=== PATIENT | male | born 1935 | race Caucasian/White ===

== ENCOUNTER → 2017-01-19 | Outpatient (CLI) | payer MEDICARE ==
--- NOTE | 2017-01-19 11:09 | US ---
EXAMINATION TYPE: US kidneys/renal and bladder DATE OF EXAM: 01/19/2017 10:55 AM COMPARISON: NONE CLINICAL HISTORY: N13.30 Hydronephrosis. EXAM MEASUREMENTS: Right Kidney: 9.9 x 5.5 x 4.7 cm Left Kidney: 11.3 x 4.8 x 5.6 cm No hydronephrosis is evident. Right Kidney: cyst measures 0.7 x 0.9 x 0.9 cm Left Kidney: multiple cysts, largest measures 2.3 x 1.6 x 1.9 cm Bladder: wnl Bilateral Jets seen: only left jet seen IMPRESSION: 1. Bilateral renal cysts. 2. No hydronephrosis
== END | disposition home or self-care (01) ==
LOC: RADUSWWP 10:35
PROVIDERS: ATTEND Internal Medicine
DX: N28.1 Cyst of kidney, acquired (principal)
CPT/HCPCS: 76770

== ENCOUNTER → 2019-08-08 | Outpatient (CLI) | payer MEDICARE ==
[2019-08-08 19:33] LABS: Chol/HDL Ratio 4.14; LDL Cholesterol,Calculated 85.4 mg/dL (0.0-131.0); VLDL Calculation 24.6 mg/dL (5.00-40.00)
== END | disposition home or self-care (01) ==
LOC: LABWHC1 08:40
PROVIDERS: ATTEND Internal Medicine Interventional Cardiology
DX: E78.2 Mixed hyperlipidemia (principal)
CPT/HCPCS: 36415; 80061; 84450; 84460

== ENCOUNTER → 2020-02-19 | Outpatient (CLI) | payer MEDICARE ==
[2020-02-19 17:29] LABS: African American GFR (CKD) 48.8 (60.0-200.0); Albumin 4.2 g/dL (3.80-4.90); Anion Gap 9.9 mmol/L (4.00-12.00); BUN/Creat Ratio 21.33 Ratio (12.00-20.00); Calcium 9.1 mg/dL (8.7-10.3); Carbon Dioxide 23.1 mmol/L (21.6-31.8); Chol/HDL Ratio 4.12; Globulin 2.1 g/dL (1.6-3.3); LDL Cholesterol,Calculated 72.8 mg/dL (0.0-131.0); Non-African American GFR(CKD) 42.1 (60.0-200.0); Potassium 5.1 mmol/L (3.5-5.5); Total Bilirubin 1.4 mg/dL (0.2-1.2); Total Protein 6.3 g/dL (6.2-8.2); VLDL Calculation 30.2 mg/dL (5.00-40.00)
== END | disposition home or self-care (01) ==
LOC: LABWHC1 08:36
PROVIDERS: ATTEND Nurse Practitioner Adult Health
DX: E78.2 Mixed hyperlipidemia (principal); I42.8 Other cardiomyopathies
CPT/HCPCS: 36415; 80053; 80061

== ENCOUNTER → 2020-09-23 | Outpatient (CLI) | payer MEDICARE ==
[2020-09-23 15:46] LABS: African American GFR (CKD) 38.9 (60.0-200.0); Albumin 4.4 g/dL (3.80-4.90); Albumin/Globulin Ratio 1.83 (1.60-3.17); Anion Gap 8.3 mmol/L (4.00-12.00); BUN/Creat Ratio 16.11 Ratio (12.00-20.00); Calcium 9.6 mg/dL (8.7-10.3); Carbon Dioxide 27.7 mmol/L (21.6-31.8); Chol/HDL Ratio 4.14; Globulin 2.4 g/dL (1.6-3.3); LDL Cholesterol,Calculated 81.8 mg/dL (0.0-131.0); Non-African American GFR(CKD) 33.6 (60.0-200.0); Potassium 5.4 mmol/L (3.5-5.5); Total Bilirubin 1.4 mg/dL (0.2-1.2); Total Protein 6.8 g/dL (6.2-8.2); VLDL Calculation 31.2 mg/dL (5.00-40.00)
== END | disposition home or self-care (01) ==
LOC: LABWHC1 08:51
PROVIDERS: ATTEND Internal Medicine Interventional Cardiology
DX: E78.2 Mixed hyperlipidemia (principal)
CPT/HCPCS: 36415; 80053; 80061

== ENCOUNTER → 2020-10-16 | Outpatient (CLI) | payer MEDICARE ==
[2020-10-16 15:20] LABS: African American GFR (CKD) 44.9 (60.0-200.0); Anion Gap 6.4 mmol/L (4.00-12.00); BUN/Creat Ratio 13.13 Ratio (12.00-20.00); Carbon Dioxide 26.6 mmol/L (21.6-31.8); Non-African American GFR(CKD) 38.7 (60.0-200.0); Potassium 5.3 mmol/L (3.5-5.5)
== END | disposition home or self-care (01) ==
LOC: LABWHC1 08:17
PROVIDERS: ATTEND Nurse Practitioner Adult Health
DX: N18.9 Chronic kidney disease, unspecified (principal)
CPT/HCPCS: 36415; 80048

== ENCOUNTER → 2020-12-27 | Outpatient (CLI) | payer MEDICARE ==
--- NOTE | 2020-12-27 17:30 | US ---
EXAMINATION TYPE: US kidneys/renal and bladder DATE OF EXAM: 12/27/2020 COMPARISON: NONE CLINICAL HISTORY: 85-year-old male N18.32 chronic kidney disease. CKD 3 TECHNIQUE: Multiple sonographic images of the kidneys and bladder are obtained. FINDINGS: EXAM MEASUREMENTS: Right Kidney: 9.2 x 4.3 x 4.0 cm Left Kidney: 10.5 x 4.3 x 3.7 cm Right Kidney: Scattered small cortical and parapelvic cysts, the largest in the lower pole measures 1 .7 x 1.1 x 1.3 cm. No hydronephrosis. Left Kidney: Exophytic cyst from the midpole measures 2.4 x 1.3 x 2.5 cm and from the lower pole mehdi ures 2.0 x 1.9 x 2.1 cm. No hydronephrosis. Bladder: Underdistention of the bladder limits its evaluation. Bilateral Jets seen: Yes IMPRESSION: No hydronephrosis. Bilateral renal cysts. Kidney measurements as above.
== END | disposition home or self-care (01) ==
LOC: RADUSWWP 15:23
PROVIDERS: ATTEND Internal Medicine
DX: N28.1 Cyst of kidney, acquired (principal); N18.32 Chronic kidney disease, stage 3b
CPT/HCPCS: 76770

== ENCOUNTER → 2021-03-26 | Outpatient (CLI) | payer MEDICARE ==
[2021-03-26 16:41] LABS: Appearance,Urine Clear (Clear); Bilirubin,Urine Negative (Negative); Blood,Urine Negative (Negative); Color,Urine Light Yellow; Glucose,Urine (UA) Negative (Negative); Ketones,Urine Negative (Negative); Leukocyte Esterase,Urine Negative (Negative); Nitrite,Urine Negative (Negative); PH, Urine 5.5 (5.0-8.0); Protein,Urine Negative (Negative); Specific Gravity,Urine 1.008 (1.001-1.035); Urobilinogen,Urine <2.0 mg/dL (<2.0)
[2021-03-27 01:23] LABS: HCT 36.9 % (39.6-50.0); HGB 12.2 g/dL (13.0-17.0); MCHC 33.1 g/dL (32.0-37.0); MCV 96.9 fL (80.0-97.0); Mean Platelet Volume 9.7 fL (9.5-12.2); Platelet Count 225 X 10*3/uL (140-440); RBC 3.81 X 10*6/uL (4.40-5.60); RDW 13.1 % (11.5-14.5); WBC 5.74 X 10*3/uL (4.50-10.00)
[2021-03-27 17:51] LABS: % Iron Saturation 25.37 (15.00-50.00); African American GFR (CKD) 44.9 (60.0-200.0); Albumin 4.2 g/dL (3.80-4.90); Albumin/Globulin Ratio 1.62 (1.60-3.17); Anion Gap 16.5 mmol/L (4.00-12.00); BUN/Creat Ratio 16.88 Ratio (12.00-20.00); Calcium 9.3 mg/dL (8.7-10.3); Carbon Dioxide 23.5 mmol/L (21.6-31.8); Globulin 2.6 g/dL (1.6-3.3); Magnesium 2.2 mg/dL (1.5-2.4); Non-African American GFR(CKD) 38.7 (60.0-200.0); Phosphorus 3.7 mg/dL (2.4-5.1); Potassium 4.5 mmol/L (3.5-5.5); Total Bilirubin 0.8 mg/dL (0.3-1.2); Total Protein 6.8 g/dL (6.2-8.2); Uric Acid 8.8 mg/dL (3.7-8.7)
[2021-03-27 17:59] LABS: Ferritin 190.7 ng/mL (22.0-322.0)
== END | disposition home or self-care (01) ==
LOC: LABWHC1 15:58
PROVIDERS: ATTEND Internal Medicine
DX: N18.32 Chronic kidney disease, stage 3b (principal); D64.9 Anemia, unspecified; N39.0 Urinary tract infection, site not specified; N25.81 Secondary hyperparathyroidism of renal origin; M10.9 Gout, unspecified
CPT/HCPCS: 36415; 80053; 81003; 82306; 82728; 83540; 83550; 83735; 83970; 84100; 84550; 85027

== ENCOUNTER → 2021-08-25 | Outpatient (CLI) | payer MEDICARE ==
--- NOTE | 2021-08-25 19:22 | US ---
EXAMINATION TYPE: US kidneys/renal and bladder DATE OF EXAM: 08/25/2021 COMPARISON: Ultrasound 12/27/2020 CLINICAL HISTORY: N18.32 STAGE 3 CHR KIDNEY DISEASE. CKD EXAM MEASUREMENTS: Right Kidney: 10.0 x 5.4 x5.1 cm Left Kidney: 12.3 x 5.4 x 5.6 cm Right Kidney: No hydronephrosis, echogenic,multiple anechoic areas seen Left Kidney: No hydronephrosis, echogenic, multiple anechoic areas seen Bladder: wnl Bilateral Jets seen: Yes There is no evidence for hydronephrosis at this point in time. No nephrolithiasis is seen. No lópez s are identified. Cortical medullary differentiation is maintained. Cortical echotexture is increased however. The urinary bladder is anechoic. Bilateral ureteral jets are seen. Right Kidney anechoic areas 1) 2.1 x 2.9x 1.1cm 2) 1.6 x 1.4 x 1.2cm Left Kidney anechoic areas 1) 2.6 x 2.4 x 1.4cm 2) 2.3 x 2.6 x 1.7cm 3) 1.6 x 1.7 x 1.7cm, findings consistent with simple cysts IMPRESSION: Renal measurements as described. Bilateral renal cysts are again noted. Findings consistent with medi hawk renal disease.
== END | disposition home or self-care (01) ==
LOC: RADUSWWP 16:03
PROVIDERS: ATTEND Internal Medicine Nephrology
DX: N18.30 Chronic kidney disease, stage 3 unspecified (principal); N28.1 Cyst of kidney, acquired
CPT/HCPCS: 76770

== ENCOUNTER → 2021-10-07 | Outpatient (CLI) | payer MEDICARE ==
[2021-10-07 15:02] LABS: ALT 18 U/L (10-49); AST 24 U/L (14-35); African American GFR (CKD) 48.6 (60.0-200.0); Albumin/Globulin Ratio 1.56 (1.60-3.17); Alkaline Phosphatase 85 U/L (41-126); BUN/Creat Ratio 12.28 Ratio (12.00-20.00); Blood Urea Nitrogen 18.3 mg/dL (9.0-27.0); Carbon Dioxide 23.8 mmol/L (20.0-27.5); Chloride 100 mmol/L (96-109); Chol/HDL Ratio 3.27 Ratio; Globulin 2.5 g/dL (1.6-3.3); Glucose 96 mg/dL (70-110); LDL Cholesterol,Calculated 70.3 mg/dL (0.0-131.0); Non-African American GFR(CKD) 41.9 (60.0-200.0); Potassium 4.8 mmol/L (3.5-5.5); Sodium 135 mmol/L (135-145); Total Protein 6.5 g/dL (6.2-8.2)
== END | disposition home or self-care (01) ==
LOC: LABWHC1 08:34
PROVIDERS: ATTEND Nurse Practitioner Adult Health
DX: E78.2 Mixed hyperlipidemia (principal); N18.9 Chronic kidney disease, unspecified
CPT/HCPCS: 36415; 80053; 80061

== ENCOUNTER 2021-12-05 00:12 | Emergency (ER) | payer MEDICARE ==
[2021-12-05 00:25] VITALS: RESP 18; TEMP 97.5
--- NOTE | 2021-12-05 00:31 | ED ---
Altered Mental Status HPI - General Chief Complaint: Altered Mental Status Stated Complaint: Confusion, Nausea, Vomiting Time Seen by Provider: 12/05/21 00:18 Source: EMS Mode of arrival: EMS Limitations: altered mental status - History of Present Illness Initial Comments: This is an 86-year-old man brought from home to have evaluation for altered mental status. Per the report he has been more confused than usual and also has been having trouble with word finding. When I interview the patient, he states that he has been having a little bit of shortness of breath and cough. He denies fever or chills. No chest pain. MD Complaint: altered mental status, confusion -: days(s) Severity: mild Associated Symptoms: shortness of breath - Related Data Previous Rx's Medication Instructions Recorded Ondansetron Odt [Zofran ODT] 4 mg PO Q8HR PRN #10 tab 12/05/21 Allergies Allergy/AdvReac Type Severity Reaction Status Date / Time Penicillins Allergy Rash/Hives Verified 12/05/21 02:41 Review of Systems ROS Statement: Those systems with pertinent positive or pertinent negative responses have been documented in the HPI. ROS Other: All systems not noted in ROS Statement are negative. Limitations: ROS unobtainable due to patients medical condition (Underlying dementia versus delirium) Constitutional: Denies: fever Respiratory: Reports: cough, dyspnea. Denies: hemoptysis Cardiovascular: Denies: chest pain, palpitations, edema, syncope Gastrointestinal: Denies: abdominal pain, vomiting, diarrhea Genitourinary: Denies: dysuria Musculoskeletal: Denies: back pain Neurological: Reports: as per HPI, confusion. Denies: headache, weakness Past Medical History Past Medical History: Unable to Obtain History of Any Multi-Drug Resistant Organisms: None Reported Past Surgical History: Unable to Obtain Past Psychological History: No Psychological Hx Reported Smoking Status: Former smoker Past Alcohol Use History: Rare Past Drug Use History: None Reported General Exam General appearance: alert, in no apparent distress Head exam: Present: atraumatic, normocephalic Eye exam: Present: normal appearance Respiratory exam: Present: normal lung sounds bilaterally, rales (Bilateral bases). Absent: respiratory distress, wheezes, rhonchi, stridor Cardiovascular Exam: Present: regular rate, normal rhythm, normal heart sounds. Absent: systolic murmur, diastolic murmur, rubs, gallop GI/Abdominal exam: Present: soft. Absent: distended, tenderness, guarding, rebound, rigid, mass Extremities exam: Present: normal inspection, normal capillary refill. Absent: pedal edema, calf tenderness Back exam: Present: normal inspection Neurological exam: Present: alert, CN II-XII intact. Absent: oriented X3 (Patient is oriented to person and place could not state the date.), motor sensory deficit Skin exam: Present: warm, dry, intact, normal color. Absent: rash Course Vital Signs 12/05/21 12/05/21 12/05/21 00:19 02:40 05:20 Temperature 97.5 F L Pulse Rate 64 65 73 Respiratory 18 18 18 Rate Blood Pressure 165/75 173/88 147/52 O2 Sat by Pulse 95 94 L 95 Oximetry Medical Decision Making - Medical Decision Making This patient is an 86-year-old man here to be evaluated for altered mental status. On arrival he does appear to be mildly dyspneic. Workup does reveal element of congestive heart failure but he has improved clinically over his stay here. He was able to lie flat without any orthopnea. The dyspnea had resolved. He did request to go home. Additional history from the patient's daughter revealed that he was having some mild dementia symptoms going back up to a year. He did appear to be much better to the patient's daughter after he had slept a little and she did want to take him home and they'll follow with his physician. - Lab Data Result diagrams: 12/05/21 00:33 12/05/21 00:33 Lab Results 12/05/21 12/05/21 12/05/21 Range/Units 00:33 00:33 00:33 WBC 6.0 (3.8-10.6) k/uL RBC 3.99 L (4.30-5.90) m/uL Hgb 12.8 L (13.0-17.5) gm/dL Hct 37.6 L (39.0-53.0) % MCV 94.4 (80.0-100.0) fL MCH 32.1 (25.0-35.0) pg MCHC 34.0 (31.0-37.0) g/dL RDW 12.9 (11.5-15.5) % Plt Count 185 (150-450) k/uL MPV 7.4 Neutrophils % 65 % Lymphocytes % 21 % Monocytes % 8 % Eosinophils % 3 % Basophils % 1 % Neutrophils # 3.9 (1.3-7.7) k/uL Lymphocytes # 1.2 (1.0-4.8) k/uL Monocytes # 0.5 (0-1.0) k/uL Eosinophils # 0.2 (0-0.7) k/uL Basophils # 0.1 (0-0.2) k/uL Sodium 129 L (137-145) mmol/L Potassium 4.8 (3.5-5.1) mmol/L Chloride 100 (98-107) mmol/L Carbon Dioxide 21 L (22-30) mmol/L Anion Gap 8 mmol/L BUN 21 H (9-20) mg/dL Creatinine 1.27 H (0.66-1.25) mg/dL Est GFR (CKD-EPI)AfAm 59 (>60 ml/min/1.73 sqM) Est GFR (CKD-EPI)NonAf 51 (>60 ml/min/1.73 sqM) Glucose 104 H (74-99) mg/dL Plasma Lactic Acid Michael 1.2 (0.7-2.0) mmol/L Calcium 8.2 L (8.4-10.2) mg/dL Total Bilirubin 1.3 (0.2-1.3) mg/dL AST 28 (17-59) U/L ALT 13 (4-49) U/L Alkaline Phosphatase 65 (38-126) U/L Troponin I (0.000-0.034) ng/mL NT-Pro-B Natriuret Pep pg/mL Total Protein 6.5 (6.3-8.2) g/dL Albumin 3.6 (3.5-5.0) g/dL Urine Color Urine Appearance (Clear) Urine pH (5.0-8.0) Ur Specific [place] (1.001-1.035) Urine Protein (Negative) Urine Glucose (UA) (Negative) Urine Ketones (Negative) Urine Blood (Negative) Urine Nitrite (Negative) Urine Bilirubin (Negative) Urine Urobilinogen (<2.0) mg/dL Ur Leukocyte Esterase (Negative) Urine RBC (0-5) /hpf Urine WBC (0-5) /hpf Ur Squamous Epith Cells (0-4) /hpf Urine Mucus (None) /hpf Serum Alcohol <10 mg/dL 12/05/21 12/05/21 12/05/21 Range/Units 00:33 00:33 02:03 WBC (3.8-10.6) k/uL RBC (4.30-5.90) m/uL Hgb (13.0-17.5) gm/dL Hct (39.0-53.0) % MCV (80.0-100.0) fL MCH (25.0-35.0) pg MCHC (31.0-37.0) g/dL RDW (11.5-15.5) % Plt Count (150-450) k/uL MPV Neutrophils % % Lymphocytes % % Monocytes % % Eosinophils % % Basophils % % Neutrophils # (1.3-7.7) k/uL Lymphocytes # (1.0-4.8) k/uL Monocytes # (0-1.0) k/uL Eosinophils # (0-0.7) k/uL Basophils # (0-0.2) k/uL Sodium (137-145) mmol/L Potassium (3.5-5.1) mmol/L Chloride (98-107) mmol/L Carbon Dioxide (22-30) mmol/L Anion Gap mmol/L BUN (9-20) mg/dL Creatinine (0.66-1.25) mg/dL Est GFR (CKD-EPI)AfAm (>60 ml/min/1.73 sqM) Est GFR (CKD-EPI)NonAf (>60 ml/min/1.73 sqM) Glucose (74-99) mg/dL Plasma Lactic Acid Michael (0.7-2.0) mmol/L Calcium (8.4-10.2) mg/dL Total Bilirubin (0.2-1.3) mg/dL AST (17-59) U/L ALT (4-49) U/L Alkaline Phosphatase (38-126) U/L Troponin I 0.012 (0.000-0.034) ng/mL NT-Pro-B Natriuret Pep 3440 pg/mL Total Protein (6.3-8.2) g/dL Albumin (3.5-5.0) g/dL Urine Color Yellow Urine Appearance Clear (Clear) Urine pH 5.0 (5.0-8.0) Ur Specific [place] 1.020 (1.001-1.035) Urine Protein Trace H (Negative) Urine Glucose (UA) Negative (Negative) Urine Ketones Negative (Negative) Urine Blood Small H (Negative) Urine Nitrite Negative (Negative) Urine Bilirubin Negative (Negative) Urine Urobilinogen <2.0 (<2.0) mg/dL Ur Leukocyte Esterase Negative (Negative) Urine RBC 1 (0-5) /hpf Urine WBC 3 (0-5) /hpf Ur Squamous Epith Cells <1 (0-4) /hpf Urine Mucus Rare H (None) /hpf Serum Alcohol mg/dL Disposition Clinical Impression: Altered mental status, CHF (congestive heart failure) Disposition: HOME SELF-CARE Condition: Good Instructions (If sedation given, give patient instructions): Heart Failure (DC) Prescriptions: Ondansetron Odt [Zofran ODT] 4 mg PO Q8HR PRN #10 tab PRN Reason: Nausea Is patient prescribed a controlled substance at d/c from ED?: No Referrals: None,Stated [Primary Care Provider] - 1-2 days Jose Alberto Fuentes DO [Doctor of Osteopathic Medicine] - 1-2 days
[2021-12-05 00:45] LABS: Basophils # (A) 0.1 k/uL (0-0.2); Basophils % (A) 1 %; Eosinophils # (A) 0.2 k/uL (0-0.7); Eosinophils % (A) 3 %; HCT 37.6 % (39.0-53.0); HGB 12.8 gm/dL (13.0-17.5); Lymphocytes # (A) 1.2 k/uL (1.0-4.8); Lymphocytes % (A) 21 %; MCH 32.1 pg (25.0-35.0); MCV 94.4 fL (80.0-100.0); Mean Platelet Volume 7.4; Monocytes # (A) 0.5 k/uL (0-1.0); Monocytes % (A) 8 %; Neutrophils # (A) 3.9 k/uL (1.3-7.7); Neutrophils % (A) 65 %; Platelet Count 185 k/uL (150-450); RBC 3.99 m/uL (4.30-5.90); RDW 12.9 % (11.5-15.5)
[2021-12-05 01:05] LABS: ALT 13 U/L (4-49); AST 28 U/L (17-59); African American GFR (CKD) 59 (>60 ml/min/1.73 sqM); Albumin 3.6 g/dL (3.5-5.0); Alcohol <10 mg/dL; Alkaline Phosphatase 65 U/L (38-126); Anion Gap 8 mmol/L; Blood Urea Nitrogen 21 mg/dL (9-20); Calcium 8.2 mg/dL (8.4-10.2); Carbon Dioxide 21 mmol/L (22-30); Chloride 100 mmol/L (98-107); Glucose 104 mg/dL (74-99); Non-African American GFR(CKD) 51 (>60 ml/min/1.73 sqM); Sodium 129 mmol/L (137-145); Total Bilirubin 1.3 mg/dL (0.2-1.3); Total Protein 6.5 g/dL (6.3-8.2)
[2021-12-05 01:08] LABS: Potassium 4.8 mmol/L (3.5-5.1)
--- NOTE | 2021-12-05 01:14 | CT ---
EXAMINATION TYPE: CT brain wo con DATE OF EXAM: 12/05/2021 COMPARISON: Confusion HISTORY: ams CT DLP: 1192.4 mGycm Automated exposure control for dose reduction was used. There is cerebral cortical atrophy. There is no mass effect or midline shift. There is no sign of int racranial hemorrhage. There is hypodensity in the periventricular white matter. Calvarium is intact. There is normal aeration of the mastoid sinuses. IMPRESSION: Cerebral atrophy and chronic small vessel ischemia. No acute intracranial abnormality.
--- NOTE | 2021-12-05 01:16 | XR ---
EXAMINATION TYPE: XR chest 1V DATE OF EXAM: 12/05/2021 COMPARISON: 03/29/2013 HISTORY: Altered mental status TECHNIQUE: FINDINGS: Heart is borderline enlarged. There is some increased interstitial density in both lungs. T here are chest leads. No definite pleural effusion. IMPRESSION: There is some mild pulmonary interstitial edema. This could be mild acute heart failure o r interstitial pneumonia. This appears mostly new compared to old exam
[2021-12-05] MEDS ORDERED: ONDANSETRON 4 MG/2 ML VIAL IVP STA (02:18)
[2021-12-05 02:46] LABS: Appearance,Urine Clear (Clear); Bilirubin,Urine Negative (Negative); Blood,Urine Small (Negative); Color,Urine Yellow; Glucose,Urine (UA) Negative (Negative); Ketones,Urine Negative (Negative); Leukocyte Esterase,Urine Negative (Negative); Mucus,Urine Rare /hpf; Nitrite,Urine Negative (Negative); Protein,Urine Trace (Negative); RBC,Urine 1 /hpf (0-5); Squamous Epithelial Cell,Urine <1 /hpf (0-4); Urobilinogen,Urine <2.0 mg/dL (<2.0); WBC,Urine 3 /hpf (0-5)
[2021-12-05 05:22] VITALS: BP 147/52; PULSE 73
== END 2021-12-05 05:21 | disposition home or self-care (01) ==
LOC: EC 00:12
DX: I50.9 Heart failure, unspecified (principal); R41.82 Altered mental status, unspecified; Z87.891 Personal history of nicotine dependence
CPT/HCPCS: 36415; 93005; 83880; 80053; 83605; 84484; 85025; 81001; 71045; 70450; 99285; 96374; G0480; J2405; 80320

== ENCOUNTER → 2022-04-21 | Outpatient (CLI) | payer MEDICARE ==
[2022-04-21 14:39] LABS: HCT 37.7 % (39.6-50.0); HGB 12.6 g/dL (13.0-17.0); MCHC 33.4 g/dL (32.0-37.0); MCV 95.7 fL (80.0-97.0); Mean Platelet Volume 9.7 fL (9.5-12.2); NRBC Per 100 WBC 0 /100 WBCS (0.0-0.0); Platelet Count 212 X 10*3/uL (140-440); RBC 3.94 X 10*6/uL (4.40-5.60); RDW 13.2 % (11.5-14.5); WBC 5.85 X 10*3/uL (4.50-10.00)
[2022-04-21 15:05] LABS: % Iron Saturation 26.61 (15.00-50.00); ALT 17 U/L (10-49); AST 23 U/L (14-35); African American GFR (CKD) 47.8 (60.0-200.0); Albumin/Globulin Ratio 1.71 (1.60-3.17); Alkaline Phosphatase 93 U/L (41-126); BUN/Creat Ratio 12.25 Ratio (12.00-20.00); Blood Urea Nitrogen 18.5 mg/dL (9.0-27.0); Calcium 9.1 mg/dL (8.7-10.3); Carbon Dioxide 24.6 mmol/L (20.0-27.5); Chloride 100 mmol/L (96-109); Globulin 2.3 g/dL (1.6-3.3); Glucose 90 mg/dL (70-110); Iron 69 ug/dL (65-175); Magnesium 2.2 mg/dL (1.5-2.4); Non-African American GFR(CKD) 41.2 (60.0-200.0); Phosphorus 3.4 mg/dL (2.4-5.1); Potassium 5.1 mmol/L (3.5-5.5); Sodium 135 mmol/L (135-145); Total Iron Binding Capacity 260 ug/dL (228-460); Total Protein 6.3 g/dL (6.2-8.2); Uric Acid 7.7 mg/dL (3.7-8.7)
[2022-04-21 15:18] LABS: VLDL Calculation 17.74 mg/dL (5.00-40.00)
[2022-04-21 16:10] LABS: Appearance,Urine Clear (Clear); Bilirubin,Urine Negative (Negative); Blood,Urine Negative (Negative); Color,Urine Yellow (Yellow); Ketones,Urine Negative (Negative); Nitrite,Urine Negative (Negative); Urobilinogen,Urine 0.2 (0.2,1.0)
== END | disposition home or self-care (01) ==
LOC: LABWHC1 08:19
PROVIDERS: ATTEND Internal Medicine Interventional Cardiology
DX: E78.2 Mixed hyperlipidemia (principal); N18.32 Chronic kidney disease, stage 3b; D64.9 Anemia, unspecified; N39.0 Urinary tract infection, site not specified; N25.81 Secondary hyperparathyroidism of renal origin; E55.9 Vitamin D deficiency, unspecified; M10.9 Gout, unspecified
CPT/HCPCS: 36415; 80053; 80061; 81003; 82306; 82728; 83540; 83550; 83735; 83970; 84100; 84550; 85027

== ENCOUNTER → 2023-03-17 | Outpatient (CLI) | payer MEDICARE ==
[2023-03-17 11:11] LABS: Basophils # (A) 0.03 X 10*3/uL (0.00-0.10); Basophils % (A) 0.7 %; Eosinophils # (A) 0.08 X 10*3/uL (0.04-0.35); Eosinophils % (A) 1.9 %; HCT 34.8 % (39.6-50.0); HGB 11.8 d/dL (12.0-15.0); Lymphocytes # (A) 0.65 X 10*3/uL (0.90-5.00); Lymphocytes % (A) 15.1 %; MCHC 33.9 d/dL (32.0-37.0); MCV 91.3 FL (80.0-97.0); Mean Platelet Volume 8.9 FL (9.5-12.2); Monocytes # (A) 0.48 X 10*3/uL (0.20-1.00); Monocytes % (A) 11.1 %; NRBC Per 100 WBC 0 X 10*3/uL (0.00-0.01); Neutrophils # (A) 3.06 X 10*3/uL (1.80-7.70); Platelet Count 193 X 10*3/uL (140-440); RBC 3.81 X 10*6/uL (4.40-5.60); RDW 13.7 % (11.5-14.5); WBC 4.31 X 10*3/uL (4.50-10.00)
[2023-03-17 11:36] LABS: Microalbumin Creatinine Ratio <15 mg/g Cr (0-30); Urine Creatinine 81.1 mg/dL (39.0-259.0)
[2023-03-17 11:42] LABS: % Iron Saturation 22.22 (15.00-50.00); ALT 17 U/L (10-49); AST 25 U/L (14-35); Albumin 3.8 d/dL (3.8-4.9); Albumin/Globulin Ratio 1.65 Ratio (1.60-3.17); Alkaline Phosphatase 86 U/L (41-126); BUN/Creat Ratio 11.46 Ratio (12.00-20.00); Blood Urea Nitrogen 14.9 mg/dL (9.0-27.0); Carbon Dioxide 25.3 mmol/L (21.6-31.8); Chloride 96 mmol/L (96-109); Chol/HDL Ratio 3.49 Ratio; Globulin 2.3 d/dL (1.6-3.3); Glucose 94 mg/dL (70-110); Iron 56 UG/DL (65-175); LDL Cholesterol,Calculated 71.6 mg/dL (0.0-131.0); Magnesium 2.4 mg/dL (1.5-2.4); Phosphorus 3.8 mg/dL (2.4-5.1); Potassium 4.9 mmol/L (3.5-5.5); Sodium 131 mmol/L (135-145); Total Iron Binding Capacity 252 UG/DL (228-460); Total Protein 6.1 d/dL (6.2-8.2); Uric Acid 7.2 mg/dL (3.7-8.7)
== END | disposition home or self-care (01) ==
LOC: LABWHC1 07:32
PROVIDERS: ATTEND Internal Medicine Interventional Cardiology
DX: E78.2 Mixed hyperlipidemia (principal); D64.9 Anemia, unspecified; N39.0 Urinary tract infection, site not specified; N25.81 Secondary hyperparathyroidism of renal origin; E55.9 Vitamin D deficiency, unspecified; D63.1 Anemia in chronic kidney disease; N18.32 Chronic kidney disease, stage 3b; M10.9 Gout, unspecified
CPT/HCPCS: 36415; 80053; 80061; 82043; 82306; 82570; 82728; 83540; 83550; 83735; 83970; 84100; 84550; 85025

== ENCOUNTER 2023-08-09 22:01 | Emergency (ER) | payer MEDICARE ==
--- NOTE | 2023-08-09 22:25 | ED ---
Fall HPI - General Chief Complaint: Fall Stated Complaint: Fall-blood thinners Time Seen by Provider: 08/09/23 22:11 Source: patient, family, RN notes reviewed, old records reviewed Mode of arrival: wheelchair Limitations: no limitations - History of Present Illness Initial Comments: This is a 87-year-old male to the emergency department today. Patient presents to the emergency department today for evaluation regards to fall. Patient of fall from standing was feeling lightheaded and dizzy prior to the fall but no symptoms of passing out. Patient does have significant skin tears to the right arm right elbow and denies any other complaints or injury. Patient has had cough for a week which his is also had, family concerned for possible pne negar FISHMAN Complaint: fall -: hour(s) Fall From: standing When Fall Occurred: 1 hour [employer] Fall Witnessed: yes, by family Place Fall Occurred: home Loss of Consciousness: none Prolonged Down Time?: no Symptoms Prior to Fall: none Location - Extremities: Right: Arm, Elbow, Forearm Severity: moderate Severity scale (1-10): 4 Context: tripped/slipped Associated Symptoms: denies - Related Data Previous Rx's Medication Instructions Recorded Ondansetron Odt [Zofran ODT] 4 mg PO Q8HR PRN #10 tab 12/05/21 Allergies Allergy/AdvReac Type Severity Reaction Status Date / Time Penicillins Allergy Rash/Hives Verified 12/05/21 02:41 Review of Systems ROS Statement: Those systems with pertinent positive or pertinent negative responses have been documented in the HPI. ROS Other: All systems not noted in ROS Statement are negative. Past Medical History Past Medical History: Unable to Obtain History of Any Multi-Drug Resistant Organisms: None Reported Past Surgical History: Unable to Obtain Past Psychological History: No Psychological Hx Reported Smoking Status: Former smoker Past Alcohol Use History: Rare Past Drug Use History: None Reported General Exam - General Exam Comments Initial Comments: Skin tear to right upper arm 5 x 3 cm Limitations: no limitations General appearance: alert, in no apparent distress Head exam: Present: atraumatic, normocephalic, normal inspection Eye exam: Present: normal appearance, PERRL, EOMI. Absent: scleral icterus, conjunctival injection, periorbital swelling ENT exam: Present: normal exam, mucous membranes moist Neck exam: Present: normal inspection. Absent: tenderness, meningismus, lymphadenopathy Respiratory exam: Present: normal lung sounds bilaterally. Absent: respiratory distress, wheezes, rales, rhonchi, stridor Cardiovascular Exam: Present: regular rate, normal rhythm, normal heart sounds. Absent: systolic murmur, diastolic murmur, rubs, gallop, clicks GI/Abdominal exam: Present: soft, normal bowel sounds. Absent: distended, tenderness, guarding, rebound, rigid Extremities exam: Present: normal inspection, full ROM, normal capillary refill. Absent: tenderness, pedal edema, joint swelling, calf tenderness Back exam: Present: normal inspection Neurological exam: Present: alert, oriented X3, CN II-XII intact Psychiatric exam: Present: normal affect, normal mood Skin exam: Present: warm, dry, intact, normal color. Absent: rash Course Vital Signs 08/09/23 08/10/23 22:03 00:54 Temperature 98.4 F 98.6 F Pulse Rate 61 60 Respiratory 18 18 Rate Blood Pressure 129/53 126/58 O2 Sat by Pulse 98 98 Oximetry - Reevaluation(s) Reevaluation #1: 08/10/23 00:13 Medical records reviewed Reevaluation #2: 08/10/23 00:13 Patient is a headache chest pain shortness with abdominal pain, no significant complaints here in the ER Reevaluation #3: 08/10/23 00:13 Patient informed results questions answered Reevaluation #4: 08/10/23 00:14 Was pt. sent in by a medical professional or institution (LISA Monroe, PICK UP OPERATOR, urgent care, hospital, or long term...) When possible be specific @ -no Did you speak to anyone other than the patient for history (EMS, parent, family, police, friend...)? What history was obtained from this source @ -no Did you review nursing and triage notes (agree or disagree)? Why? @ -agree Are old charts reviewed (outside hosp., previous admission, EMS record, old EKG, old radiological studies, urgent care reports/EKG's, long term records)? Report findings @ -yes Differential Diagnosis (chest pain, altered mental status, abdominal pain women, abdominal pain men, vaginal bleeding, weakness, fever, dyspnea, syncope, headache, dizziness, GI bleed, back pain, seizure, CVA, palpatations, mental health, musculoskeletal)? @ -prior EKG interpreted by me (3pts min.). @ -no X-rays interpreted by me (1pt min.). @ -yes negative for acute disease CT interpreted by me (1pt min.). @ -no U/S interpreted by me (1pt. min.). @ -no What testing was considered but not performed or refused? (CT, X-rays, U/S, labs)? Why? @ -none What meds were considered but not given or refused? Why? @ -none Did you discuss the management of the patient with other professionals (professionals i.e. , PA, PICK UP OPERATOR, lab, RT, psych nurse, social work lecturer, athletic equipment manager, teacher, international first officer, case consultant)? Give summary @ -no Was smoking cessation discussed for >3mins.? @ -no Was critical care preformed (if so, how long)? @ -no Were there social determinants of health that impacted care today? How? (Homelessness, low income, unemployed, alcoholism, drug addiction, transportation, low edu. Level, literacy, decrease access to med. care, [facility], rehab)? @ -none Was there de-escalation of care discussed even if they declined (Discuss DNR or withdrawal of care, Hospice)? DNR status @ -no What co-morbidities impacted this encounter? (DM, HTN, Smoking, COPD, CAD, Cancer, CVA, ARF, Chemo, Hep., AIDS, mental health diagnosis, sleep apnea, morbid obesity)? @ -none Was patient admitted / discharged? Hospital course, mention meds given and route, prescriptions, significant lab abnormalities, going to OR and other pertinent info. @ - 85 male to the emergency department for evaluation, patient is positive for coronavirus here in the ER. Patient has had persistent cough as well as . Patient has no other complaints skin tear is repaired with bandage here in the ER patient can be discharged home Discharge Undiagnosed new problem with uncertain prognosis? @ -no Drug Therapy requiring intensive monitoring for toxicity (Heparin, Nitro, Insulin, Cardizem)? @ -no Were any procedures done? @ -no Diagnosis/symptom? @ -Coronavirus, fall, weakness, skin tear left arm Acute, or Chronic, or Acute on Chronic? @ -Acute Uncomplicated (without systemic symptoms) or Complicated (systemic symptoms)? @ -Complicated Side effects of treatment? @ -no Exacerbation, Progression, or Severe Exacerbation? @ -exacerbation Poses a threat to life or bodily function? How? (Chest pain, USA, NM, pneumonia, PE, COPD, DKA, ARF, appy, cholecystitis, CVA, Diverticulitis, Homicidal, Suicidal, threat to staff... and all critical care pts) @ -yes with extreme of age and coronavirus Reevaluation #5: 08/10/23 00:13 Differential Weakness: Hypoglycemia, shock, sepsis, hyponatremia, anemia, infection, NM, ETOH, adverse medicine reaction, overdose, stroke, this is not meant to be an all-inclusive list. Medical Decision Making - Medical Decision Making 85 male to the emergency department for evaluation, patient is positive for coronavirus here in the ER. Patient has had persistent cough as well as . Patient has no other complaints skin tear is repaired with bandage here in the ER patient can be discharged home - Lab Data Lab Results 08/09/23 Range/Units 22:36 SARS-CoV-2 (PCR) Detected A (Not Detectd) - Radiology Data Radiology results: report reviewed (Chest x-ray arm x-ray negative for traumatic injury negative for pneumonia), image reviewed Disposition Clinical Impression: Fall, Skin tear of right upper arm without complication, Coronavirus infection Disposition: HOME SELF-CARE Condition: Fair Instructions (If sedation given, give patient instructions): Coronavirus Disease 2019 (COVID-19), Fall Prevention for Older Adults (ED), Skin Tear (ED) Is patient prescribed a controlled substance at d/c from ED?: No Referrals: Daren Contreras MD [Primary Care Provider] - 1-2 days Time of Disposition: 00:00
[2023-08-09 22:26] VITALS: RESP 18
--- NOTE | 2023-08-09 23:56 | XR ---
EXAM: XR Chest, 2 Views CLINICAL HISTORY: ITS.REASON XR Reason: fall TECHNIQUE: Frontal and lateral views of the chest. COMPARISON: No relevant prior studies available. FINDINGS: Lungs: Unremarkable. No consolidation. Pleural space: Unremarkable. No pneumothorax. Heart: Cardiomegaly. Mediastinum: Unremarkable. Normal mediastinal contour. Bones/joints: Unremarkable. No acute fracture. IMPRESSION: No acute findings in the chest.
--- NOTE | 2023-08-10 00:03 | XR ---
EXAM: XR Right Elbow Complete, 3 or More Views CLINICAL HISTORY: ITS.REASON XR Reason: fall TECHNIQUE: Frontal, lateral and oblique views of the right elbow. COMPARISON: No relevant prior studies available. FINDINGS: Bones/joints: Osseous demineralization. No acute fracture. No dislocation. Soft tissues: Suspected laceration involving the posterior aspect of the distal humerus, correlate with physical exam. IMPRESSION: Suspected laceration involving the posterior aspect of the distal humerus, correlate with physical exam. See lateral view. No fracture or dislocation.
--- NOTE | 2023-08-10 00:04 | XR ---
EXAM: XR Right Shoulder Complete, 2 or More Views CLINICAL HISTORY: ITS.REASON XR Reason: fall TECHNIQUE: Two or more views of the right shoulder. COMPARISON: No relevant prior studies available. FINDINGS: Bones/joints: Osseous demineralization. Downsloping acromion, which narrows the subacromial space, impingement. No acute fracture or dislocation. Soft tissues: Unremarkable. IMPRESSION: No acute fracture or dislocation.
[2023-08-10 00:57] VITALS: BP 126/58; PULSE 60; TEMP 98.6
== END 2023-08-10 00:56 | disposition home or self-care (01) ==
LOC: EC 22:01
DX: U07.1 COVID-19 (principal); S41.111A Laceration without foreign body of right upper arm, initial encounter; Z87.891 Personal history of nicotine dependence; Z88.0 Allergy status to penicillin; W18.30XA Fall on same level, unspecified, initial encounter; Y92.009 Unspecified place in unspecified non-institutional (private) residence as the place of occurrence of the external cause
CPT/HCPCS: 71046; 87635; 99284

== ENCOUNTER → 2023-10-11 | Outpatient (CLI) | payer MEDICARE ==
[2023-10-11 09:05] LABS: NT-Pro-B-Type Natriuretic Pept 3610 pg/mL
[2023-10-11 15:43] LABS: BUN/Creat Ratio 12.14 Ratio (12.00-20.00); Glucose 97 mg/dL (70-110); LDL Cholesterol,Calculated 65.9 mg/dL (0.0-131.0); VLDL Calculation 17.24 mg/dL (5.00-40.00)
[2023-10-11 15:44] LABS: ALT 11 U/L (10-49); AST 20 U/L (14-35); Albumin 4.1 g/dL (3.8-4.9); Albumin/Globulin Ratio 1.71 Ratio (1.60-3.17); Alkaline Phosphatase 84 U/L (41-126); Calcium 9.5 mg/dL (8.7-10.3); Carbon Dioxide 24.2 mmol/L (21.6-31.8); Chloride 99 mmol/L (96-109); Globulin 2.4 g/dL (1.6-3.3); Potassium 4.8 mmol/L (3.5-5.5); Sodium 136 mmol/L (135-145); Total Bilirubin 1.1 mg/dL (0.3-1.2); Total Protein 6.5 g/dL (6.2-8.2)
== END | disposition home or self-care (01) ==
LOC: LABWHC1 08:09
PROVIDERS: ATTEND Internal Medicine Interventional Cardiology
DX: I35.1 Nonrheumatic aortic (valve) insufficiency (principal); I42.8 Other cardiomyopathies; E78.2 Mixed hyperlipidemia; N18.9 Chronic kidney disease, unspecified
CPT/HCPCS: 36415; 80053; 80061; 83880

== ENCOUNTER → 2023-11-01 | Outpatient (CLI) | payer MEDICARE ==
[2023-11-01 15:51] LABS: % Iron Saturation 29.56 (15.00-50.00); ALT 13 U/L (10-49); AST 21 U/L (14-35); Albumin 4.2 g/dL (3.8-4.9); Albumin/Globulin Ratio 1.68 Ratio (1.60-3.17); Alkaline Phosphatase 89 U/L (41-126); BUN/Creat Ratio 15.14 Ratio (12.00-20.00); Blood Urea Nitrogen 21.2 mg/dL (9.0-27.0); Calcium 9.5 mg/dL (8.7-10.3); Carbon Dioxide 25.6 mmol/L (21.6-31.8); Chloride 102 mmol/L (96-109); Globulin 2.5 g/dL (1.6-3.3); Glucose 106 mg/dL (70-110); Iron 81 UG/DL (65-175); Magnesium 2.1 mg/dL (1.5-2.4); Phosphorus 3.5 mg/dL (2.4-5.1); Potassium 4.4 mmol/L (3.5-5.5); Sodium 138 mmol/L (135-145); Total Bilirubin 1.2 mg/dL (0.3-1.2); Total Iron Binding Capacity 274 UG/DL (228-460); Total Protein 6.7 g/dL (6.2-8.2); Uric Acid 7.7 mg/dL (3.7-8.7)
[2023-11-01 15:57] LABS: HGB 13.6 g/dL (13.0-17.0); MCH 31.4 pg (27.0-32.0); MCHC 33.2 g/dL (32.0-37.0); MCV 94.7 FL (80.0-97.0); Mean Platelet Volume 10.2 FL (9.5-12.2); NRBC Per 100 WBC 0 X 10*3/uL (0.00-0.01); Platelet Count 212 X 10*3/uL (140-440); RBC 4.33 X 10*6/uL (4.40-5.60); RDW 13.8 % (11.5-14.5); WBC 6.16 X 10*3/uL (4.50-10.00)
[2023-11-01 16:33] LABS: Appearance,Urine Clear (Clear); Bilirubin,Urine Negative (Negative); Blood,Urine Negative (Negative); Color,Urine Yellow (Yellow); Ketones,Urine Negative (Negative); Nitrite,Urine Negative (Negative); PH, Urine 5.5; Specific Gravity,Urine 1.011 (1.001-1.030); Urobilinogen,Urine 0.2 E.U./DL
[2023-11-01 19:32] LABS: Microalbumin Creatinine Ratio <16 mg/g Cr (0-30); Urine Creatinine 77.4 mg/dL (39.0-259.0)
== END | disposition home or self-care (01) ==
LOC: LABWHC1 09:44
PROVIDERS: ATTEND Internal Medicine
DX: N25.81 Secondary hyperparathyroidism of renal origin (principal); N18.32 Chronic kidney disease, stage 3b; D63.1 Anemia in chronic kidney disease; N39.0 Urinary tract infection, site not specified; E55.9 Vitamin D deficiency, unspecified; M10.9 Gout, unspecified; R80.9 Proteinuria, unspecified
CPT/HCPCS: 36415; 80053; 81003; 82043; 82306; 82570; 82728; 83540; 83550; 83735; 83970; 84100; 84550; 85027

== ENCOUNTER → 2024-02-07 | Outpatient (CLI) | payer MEDICARE ==
[2024-02-07 17:23] LABS: ALT 20 U/L (10-49); AST 25 U/L (14-35); Albumin 4.2 g/dL (3.8-4.9); Alkaline Phosphatase 77 U/L (41-126); BUN/Creat Ratio 13.77 Ratio (12.00-20.00); Blood Urea Nitrogen 17.9 mg/dL (9.0-27.0); Calcium 9.6 mg/dL (8.7-10.3); Carbon Dioxide 24.4 mmol/L (21.6-31.8); Chloride 103 mmol/L (96-109); Chol/HDL Ratio 2.63 Ratio; Globulin 2.1 g/dL (1.6-3.3); Glucose 101 mg/dL (70-110); LDL Cholesterol,Calculated 58.2 mg/dL (0.0-131.0); Potassium 4.9 mmol/L (3.5-5.5); Sodium 140 mmol/L (135-145); Total Protein 6.3 g/dL (6.2-8.2); VLDL Calculation 17.96 mg/dL (5.00-40.00)
[2024-02-07 19:32] LABS: NT-Pro-B-Type Natriuretic Pept 2823 pg/mL (0-450)
== END | disposition home or self-care (01) ==
LOC: LABWHC1 08:21
PROVIDERS: ATTEND Nurse Practitioner Adult Health
DX: I42.8 Other cardiomyopathies (principal); I50.22 Chronic systolic (congestive) heart failure; E78.2 Mixed hyperlipidemia
CPT/HCPCS: 36415; 80053; 80061; 83880

== ENCOUNTER → 2024-02-28 | Outpatient (CLI) | payer MEDICARE ==
--- NOTE | 2024-02-28 11:53 | US ---
EXAMINATION TYPE: US kidneys/renal and bladder DATE OF EXAM: 02/28/2024 COMPARISON: US CLINICAL INDICATION: Male, 88 years old with history of N18.32 KIDNEY DISEASE,STAGE 3B; CKD EXAM MEASUREMENTS: Right Kidney: 9.9 x 5.5 x 5.6 cm Left Kidney: 12.3 x 5.2 x 4.9 cm Right Kidney: No evidence of hydro, multiple cysts, largest at lower pole= 1.8 x 1.5 x 2.0 cm Left Kidney: No evidence of hydro, multiple cysts, largest lateral= 2.8 x 1.7 x 2.7 cm Bladder: Possible posterior bladder wall diverticula Bilateral Jets seen: Only left jet visualized There is no evidence for hydronephrosis at this point in time. No nephrolithiasis is seen. No lópez s are identified. The urinary bladder is anechoic. Bilateral ureteral jets are seen. Cortical medul avery differentiation is maintained of the kidneys. IMPRESSION: 1. No evidence for obstructive uropathy or renal calculus. 2. Simple appearing renal cysts.
[2024-02-28 14:46] LABS: HCT 37.1 % (39.6-50.0); MCH 31.2 pg (27.0-32.0); MCHC 32.3 g/dL (32.0-37.0); MCV 96.4 FL (80.0-97.0); Mean Platelet Volume 9.6 FL (9.5-12.2); NRBC Per 100 WBC 0 X 10*3/uL (0.00-0.01); Platelet Count 207 X 10*3/uL (140-440); RBC 3.85 X 10*6/uL (4.40-5.60); WBC 6.95 X 10*3/uL (4.50-10.00)
[2024-02-28 15:05] LABS: Appearance,Urine Cloudy (Clear); Bilirubin,Urine Negative (Negative); Blood,Urine Small (Negative); Color,Urine Yellow (Yellow); Ketones,Urine Negative (Negative); Nitrite,Urine Positive (Negative); PH, Urine 5.5; Specific Gravity,Urine 1.006 (1.001-1.030)
[2024-02-28 15:13] LABS: Bacteria,Urine 3+ (None Seen)
[2024-02-28 15:40] LABS: % Iron Saturation 23.08 (15.00-50.00); ALT 28 U/L (10-49); AST 30 U/L (14-35); Albumin 3.9 g/dL (3.8-4.9); Albumin/Globulin Ratio 1.77 Ratio (1.60-3.17); Alkaline Phosphatase 78 U/L (41-126); BUN/Creat Ratio 12.67 Ratio (12.00-20.00); Blood Urea Nitrogen 15.2 mg/dL (9.0-27.0); Calcium 8.7 mg/dL (8.7-10.3); Carbon Dioxide 23.9 mmol/L (21.6-31.8); Chloride 98 mmol/L (96-109); Globulin 2.2 g/dL (1.6-3.3); Glucose 93 mg/dL (70-110); Iron 51 UG/DL (65-175); Phosphorus 3.4 mg/dL (2.4-5.1); Sodium 135 mmol/L (135-145); Total Bilirubin 0.8 mg/dL (0.3-1.2); Total Iron Binding Capacity 221 UG/DL (228-460); Total Protein 6.1 g/dL (6.2-8.2); Uric Acid 6.8 mg/dL (3.7-8.7)
[2024-02-28 19:08] LABS: Free Kappa Lt Chain Qnt, Serum 3.61 mg/dL (0.33-1.94); Free Lambda Lt Chain Qnt, Seru 3.47 mg/dL (0.57-2.63)
[2024-02-28 20:13] LABS: Urine Creatinine 41.2 mg/dL (39.0-259.0)
== END | disposition home or self-care (01) ==
LOC: RADUSWWP 09:12
PROVIDERS: ATTEND Internal Medicine
DX: N18.32 Chronic kidney disease, stage 3b (principal); N28.1 Cyst of kidney, acquired
CPT/HCPCS: 76770; 80053; 81001; 82043; 82306; 82570; 82728; 83540; 83550; 83735; 83883; 83970; 84100; 84166; 84550; 85027; 86334

== ENCOUNTER → 2024-07-04 | Outpatient (CLI) | payer MEDICARE ==
[2024-07-04 15:43] LABS: NT-Pro-B-Type Natriuretic Pept 3656 pg/mL (0-450)
[2024-07-04 15:56] LABS: HCT 38.6 % (39.6-50.0); HGB 12.7 g/dL (13.0-17.0); MCH 31.8 pg (27.0-32.0); MCHC 32.9 g/dL (32.0-37.0); MCV 96.5 FL (80.0-97.0); Mean Platelet Volume 9.7 FL (9.5-12.2); NRBC Per 100 WBC 0 X 10*3/uL (0.00-0.01); Platelet Count 204 X 10*3/uL (140-440); RDW 12.9 % (11.5-14.5)
[2024-07-04 16:28] LABS: ALT 15 U/L (10-49); AST 22 U/L (14-35); Albumin/Globulin Ratio 1.67 Ratio (1.60-3.17); Alkaline Phosphatase 92 U/L (41-126); BUN/Creat Ratio 13.58 Ratio (12.00-20.00); Blood Urea Nitrogen 16.3 mg/dL (9.0-27.0); Calcium 9.3 mg/dL (8.7-10.3); Carbon Dioxide 24.1 mmol/L (21.6-31.8); Chloride 100 mmol/L (96-109); Chol/HDL Ratio 2.71 Ratio; Globulin 2.4 g/dL (1.6-3.3); Glucose 96 mg/dL (70-110); LDL Cholesterol,Calculated 65.8 mg/dL (0.0-131.0); Potassium 4.8 mmol/L (3.5-5.5); Sodium 136 mmol/L (135-145); T4, Free (Free Thyroxine) 1.57 ng/dL (0.80-1.80); Total Protein 6.4 g/dL (6.2-8.2)
== END | disposition home or self-care (01) ==
LOC: LABWHC1 08:23
PROVIDERS: ATTEND Internal Medicine Interventional Cardiology
CPT/HCPCS: 36415; 80053; 80061; 83880; 84439; 84443; 85027

== ENCOUNTER → 2024-07-31 | Outpatient (CLI) | payer MEDICARE ==
[2024-07-31 18:40] LABS: HCT 36.8 % (39.6-50.0); HGB 12.4 g/dL (13.0-17.0); MCH 32.7 pg (27.0-32.0); MCHC 33.7 g/dL (32.0-37.0); MCV 97.1 FL (80.0-97.0); Mean Platelet Volume 9.8 FL (9.5-12.2); NRBC Per 100 WBC 0 X 10*3/uL (0.00-0.01); Platelet Count 223 X 10*3/uL (140-440); RBC 3.79 X 10*6/uL (4.40-5.60); RDW 13.1 % (11.5-14.5); WBC 7.79 X 10*3/uL (4.50-10.00)
[2024-07-31 19:04] LABS: Appearance,Urine Clear (Clear); Bilirubin,Urine Negative (Negative); Blood,Urine Negative (Negative); Color,Urine Yellow (Yellow); Ketones,Urine Negative (Negative); Nitrite,Urine Negative (Negative); Specific Gravity,Urine 1.017 (1.001-1.030)
[2024-07-31 19:06] LABS: % Iron Saturation 23.35 (15.00-50.00); ALT 17 U/L (10-49); AST 21 U/L (14-35); Albumin 3.8 g/dL (3.8-4.9); Albumin/Globulin Ratio 1.81 Ratio (1.60-3.17); Alkaline Phosphatase 100 U/L (41-126); BUN/Creat Ratio 13.73 Ratio (12.00-20.00); Blood Urea Nitrogen 15.1 mg/dL (9.0-27.0); Calcium 8.8 mg/dL (8.7-10.3); Carbon Dioxide 26.4 mmol/L (21.6-31.8); Chloride 101 mmol/L (96-109); Globulin 2.1 g/dL (1.6-3.3); Glucose 126 mg/dL (70-110); Iron 53 UG/DL (65-175); Phosphorus 3.7 mg/dL (2.4-5.1); Potassium 4.3 mmol/L (3.5-5.5); Sodium 137 mmol/L (135-145); Total Bilirubin 0.7 mg/dL (0.3-1.2); Total Iron Binding Capacity 227 UG/DL (228-460); Total Protein 5.9 g/dL (6.2-8.2); Uric Acid 6.4 mg/dL (3.7-8.7)
[2024-07-31 19:14] LABS: Bacteria,Urine None Seen (None Seen)
[2024-07-31 21:50] LABS: Microalbumin Creatinine Ratio <11 mg/g Cr (0-30)
== END | disposition home or self-care (01) ==
LOC: LABWHC1 15:30
PROVIDERS: ATTEND Nurse Practitioner Family
DX: N18.32 Chronic kidney disease, stage 3b (principal); D63.1 Anemia in chronic kidney disease; N39.0 Urinary tract infection, site not specified; E55.9 Vitamin D deficiency, unspecified; N25.81 Secondary hyperparathyroidism of renal origin; M10.9 Gout, unspecified
CPT/HCPCS: 36415; 80053; 81001; 82043; 82306; 82570; 82728; 83540; 83550; 83735; 83970; 84100; 84550; 85027

== ENCOUNTER → 2024-11-14 | Outpatient (CLI) | payer MEDICARE ==
[2024-11-14 15:20] LABS: NT-Pro-B-Type Natriuretic Pept 2732 pg/mL (0-450)
[2024-11-14 16:07] LABS: VLDL Calculation 19.06 mg/dL (5.00-40.00)
[2024-11-14 16:20] LABS: ALT 17 U/L (10-49); AST 25 U/L (14-35); Albumin 3.9 g/dL (3.8-4.9); Albumin/Globulin Ratio 1.62 Ratio (1.60-3.17); Alkaline Phosphatase 91 U/L (41-126); BUN/Creat Ratio 13.92 Ratio (12.00-20.00); Blood Urea Nitrogen 16.7 mg/dL (9.0-27.0); Carbon Dioxide 24.3 mmol/L (21.6-31.8); Chloride 101 mmol/L (96-109); Chol/HDL Ratio 2.95 Ratio; Globulin 2.4 g/dL (1.6-3.3); Glucose 102 mg/dL (70-110); LDL Cholesterol,Calculated 62.8 mg/dL (0.0-131.0); Potassium 4.6 mmol/L (3.5-5.5); Sodium 137 mmol/L (135-145); Total Bilirubin 1.1 mg/dL (0.3-1.2); Total Protein 6.3 g/dL (6.2-8.2)
== END | disposition home or self-care (01) ==
LOC: LABWHC1 08:32
PROVIDERS: ATTEND Family Medicine
DX: I12.9 Hypertensive chronic kidney disease with stage 1 through stage 4 chronic kidney disease, or unspecified chronic kidney disease (principal); I42.8 Other cardiomyopathies; N18.9 Chronic kidney disease, unspecified; E78.2 Mixed hyperlipidemia; K59.04 Chronic idiopathic constipation; E87.1 Hypo-osmolality and hyponatremia; E03.9 Hypothyroidism, unspecified
CPT/HCPCS: 36415; 80053; 80061; 83880; 84443

== ENCOUNTER 2025-02-16 18:27 | Emergency (ER) | payer MEDICARE ==
[2025-02-16 18:46] VITALS: BP 173/70; PULSE 65; RESP 20; TEMP 97.3
--- NOTE | 2025-02-16 19:21 | ED ---
General Adult HPI - General Chief complaint: Extremity Injury, Upper Stated complaint: L Elbow poss infection Time Seen by Provider: 02/16/25 18:45 Source: patient, RN notes reviewed, old records reviewed Mode of arrival: wheelchair Limitations: no limitations - History of Present Illness Initial comments: This is an 89-year-old male who presents to the emergency department complaining of a left elbow swelling redness and is hot. Patient states it started yesterday and is now more painful today more swollen and more red. Patient does not remember hitting it or doing any else to it. Patient states he went to urgent care and urgent care wanted him to come here because he did want it drained. Patient denies any fever chills. - Related Data Previous Rx's Medication Instructions Recorded Ondansetron Odt [Zofran ODT] 4 mg PO Q8HR PRN #10 tab 12/05/21 clindamycin HCL 300 mg PO TID #42 cap 02/16/25 Allergies Allergy/AdvReac Type Severity Reaction Status Date / Time Penicillins Allergy Rash/Hives Verified 02/16/25 18:46 Review of Systems ROS Statement: Those systems with pertinent positive or pertinent negative responses have been documented in the HPI. ROS Other: All systems not noted in ROS Statement are negative. Past Medical History Past Medical History: Heart Failure History of Any Multi-Drug Resistant Organisms: None Reported Past Surgical History: Unable to Obtain Past Psychological History: No Psychological Hx Reported Smoking Status: Former smoker Past Alcohol Use History: None Reported Past Drug Use History: None Reported General Exam - General Exam Comments Initial Comments: GENERAL Patient is well-developed and well-nourished. Patient is in mild distress. EYES Patient's pupils are equal and round. Extraocular motion is intact SKIN Unremarkable NEURO The patient is alert and oriented A&Ox3 PYSCH Patient has normal interpersonal interactions. MUSCULOSKELETAL Patient's left elbow has a area of swelling posteriorly that measures about 4 cm it is red hot and it is somewhat painful. It is classic for a septic olecranon bursitis. Elbow has full range of motion Limitations: no limitations Course Vital Signs 02/16/25 18:43 Temperature 97.3 F L Pulse Rate 65 Respiratory 20 Rate Blood Pressure 173/70 O2 Sat by Pulse 97 Oximetry Procedures - Procedures Initial comment: Patient had an olecranon bursitis I used Betadine and sterilely prepped and draped the patient I used an 18-gauge needle I anthony out 12 cc of clear straw like fluid. Disposition Clinical Impression: Septic olecranon bursitis Disposition: HOME SELF-CARE Condition: Good Instructions (If sedation given, give patient instructions): Elbow Bursitis (ED) Additional Instructions: patient should take Motrin or Naprosyn as needed for pain and swelling Patient should take clindamycin as prescribed Patient should return if the area worsens in any way or if pain increases or if the patient starts exhibiting fever Patient should put bacitracin on 3 times daily Prescriptions: clindamycin HCL 300 mg PO TID #42 cap Is patient prescribed a controlled substance at d/c from ED?: No Referrals: Daren Contreras MD [Primary Care Provider] - 1-2 days Time of Disposition: 19:19
[2025-02-16] MEDS: CLINDAMYCIN 150 MG CAP PO STA (19:28)
[2025-02-16] MEDS: BACITRACIN OINT 1 EACH PACKET TOPICAL ONE (19:29)
== END 2025-02-16 19:28 | disposition home or self-care (01) ==
LOC: EC 18:27
DX: M71.122 Other infective bursitis, left elbow (principal); Z87.891 Personal history of nicotine dependence; Z88.0 Allergy status to penicillin
CPT/HCPCS: 99283